=== PATIENT | female | born 1990 | race Caucasian/White ===

== ENCOUNTER 2022-01-21 11:28 | Observation (INO) | payer OTHER ==
[~2022-01-21] VITALS: Ht 170.2 cm; Wt 59.0 kg
[2022-01-21 13:21] LABS: HEMOGLOBIN 11.3 gm/dl (12.3-15.3); RED BLOOD COUNT 4.01 M/UL (4.00-5.10)
[2022-01-21 13:43] LABS: BUN/CREATININE RATIO 9 (0-10)
[2022-01-21] MEDS ORDERED: CEFDINIR300 MG PO (17:09)
[2022-01-21] MEDS ORDERED: IBUPROFEN600 MG PO (17:09)
[2022-01-21] MEDS ORDERED: ONDANSETRON ODT4 MG SL (17:09)
[2022-01-21] MEDS ORDERED: PYRIDIUM200 MG PO (17:09)
[2022-01-21] MEDS ORDERED: LAMOTRIGINE100 MG PO (20:51)
[2022-01-22 06:28] LABS: HEMOGLOBIN 10.1 gm/dl (12.3-15.3); WHITE BLOOD COUNT 18.8 K/UL (4.5-11.0)
[2022-01-22 06:30] LABS: RED BLOOD COUNT 3.52 M/UL (4.00-5.10)
[2022-01-22 06:54] LABS: BUN/CREATININE RATIO 17 (0-10)
[2022-01-22] MEDS ORDERED: VITAMIN B-121000 MCG PO (11:25)
[2022-01-22] MEDS ORDERED: PAROXETINE HCL20 MG PO (11:26)
[2022-01-22] MEDS ORDERED: HYDROXYZINE PAM25 MG PO (11:27)
[2022-01-22] MEDS ORDERED: SUMATRIPTAN SUC25 MG PO (11:28)
[2022-01-22] MEDS ORDERED: TYLENOL EXTRA500 MG PO (11:29)
[2022-01-22] MEDS ORDERED: CLONIDINE HCL0.1 MG PO (11:33)
[2022-01-22] MEDS ORDERED: CYCLOBENZAPRINE10 MG PO (11:34)
[2022-01-22] MEDS ORDERED: OMNICEF 300 MG300 MG PO (13:38)
== END 2022-01-22 16:02 | disposition home or self-care (01) ==
LOC: EDBD 11:28 → ER1 11:28 → CDU 19:02 → MED SURG 4 21:05
PROVIDERS: Physician Assistant; ADMIT Internal Medicine
DX: N12 Tubulo-interstitial nephritis, not specified as acute or chronic (principal); N20.0 Calculus of kidney; G40.909 Epilepsy, unspecified, not intractable, without status epilepticus; F17.210 Nicotine dependence, cigarettes, uncomplicated
CPT/HCPCS: 80048; 80053; 81001; 83605; 83735; 84703; 85025; 87040; 87086; 96372; 96374; 96375; 96376; 99285; G0378; J0696; J1650; J1885; J2543; Q9967